=== PATIENT | female | born 1985 | race American Indian/Alaskan Native ===

== ENCOUNTER 2018-11-20 23:07 | Emergency (ER) | payer SELFPAY ==
[2018-11-20] MEDS ORDERED: NACL 0.9% 1000 ML 1,000 ML IV ONE (23:24)
[2018-11-21 01:17] LABS: Basophils % (Auto) 0.4 % (0.0-1.8); Eosinophils # (Auto) 0.1 K/mm3 (0.0-0.4); Eosinophils % (Auto) 0.9 % (0.0-4.3); Hematocrit 31.7 % (30.3-42.9); Hemoglobin 9.5 gm/dl (10.1-14.3); Lymphocytes # (Auto) 1.9 K/mm3 (1.2-5.4); Lymphocytes % (Auto) 32.9 % (13.4-35.0); Mean Corpuscular HGB Conc 30 % (30-34); Mean Corpuscular Volume 67 fl (79-97); Monocytes # (Auto) 0.4 K/mm3 (0.0-0.8); Monocytes % (Auto) 7.5 % (0.0-7.3); Platelet Count 240 K/mm3 (140-440); Red Blood Count 4.73 M/mm3 (3.65-5.03); Red Cell Distribution Width 18.3 % (13.2-15.2)
[2018-11-21 01:41] LABS: Alanine Aminotransferase 11 units/L (7-56); Albumin 4.2 g/dL (3.9-5); BUN/Creatinine Ratio 18; Blood Urea Nitrogen 14 mg/dL (7-17); Calcium 9.2 mg/dL (8.4-10.2); Hemolysis Index 0
[2018-11-21 02:46] LABS: Bacteria,Urine 1+ /HPF (Negative); Bilirubin,Urine NEG (Negative); Blood,Urine SM (Negative); Color,Urine Yellow (Yellow); Mucus,Urine FEW /HPF; Protein,Urine <15 mg/dL mg/dL (Negative); Urobilinogen,Urine < 2.0 mg/dL (<2.0)
[2018-11-21] MEDS ORDERED: XYLOCAINE 1% MPF 5 mL INFILTRATI ONE (02:52)
[2018-11-21] MEDS ORDERED: ROCEPHIN IM ONE (02:53)
--- NOTE | 2018-11-21 03:22 | Emergency Department Report ---
ED Female HPI - General Chief complaint: Abdominal Pain Stated complaint: ABD PAIN Time Seen by Provider: 11/21/18 02:02 Source: patient Mode of arrival: Ambulatory Limitations: No Limitations - History of Present Illness Initial comments: 33-year-old -[place] female presents to the emergency room for concerns for STD she has vaginal discharge that has a foul odor. Patient reports mild suprapubic pain. Patient reports that she is sexually active with 2 men in the last 6 months but reports that she has been using protection. Not sure if the partners condom came off. Patient denies any fever or chills no nausea no vomiting. MD Complaint: vaginal discharge, pelvic pain -: week(s) (1) Location: suprapubic Radiation: non-radiating Severity scale (0 -10): 6 Quality: cramping Consistency: intermittent Improves with: none Worsens with: none Are you Now?: No Associated Symptoms: vaginal discharge (with odor). denies: vaginal bleeding, nausea/vomiting, fever/chills - Related Data Sexually active: Yes (2 partners last 6 months man) Previous Rx's Medication Instructions Recorded Last Taken Type Acetaminophen/Codeine [Tylenol 1 tab PO Q6H PRN #12 tab 11/21/18 Unknown Rx /Codeine # 3 tab] Doxycycline [Vibramycin CAP] 100 mg PO Q12HR #20 capsule 11/21/18 Unknown Rx metroNIDAZOLE [Flagyl] 500 mg PO Q8HR #30 tablet 11/21/18 Unknown Rx Allergies Allergy/AdvReac Type Severity Reaction Status Date / Time No Known Allergies Allergy Unverified 11/20/18 23:15 ED Review of Systems ROS: Stated complaint: ABD PAIN Other details as noted in HPI Comment: All other systems reviewed and negative Gastrointestinal: abdominal pain Genitourinary: discharge ED Past Medical Hx - Past Medical History Previous Medical History?: No - Surgical History Past Surgical History?: Yes Additional Surgical History: back sx, scoliosis 2000 - Social History Smoking Status: Never Smoker Substance Use Type: None - Medications Home Medications: Home Medications Medication Instructions Recorded Confirmed Last Taken Type Acetaminophen/Codeine [Tylenol 1 tab PO Q6H PRN #12 tab 11/21/18 Unknown Rx /Codeine # 3 tab] Doxycycline [Vibramycin CAP] 100 mg PO Q12HR #20 capsule 11/21/18 Unknown Rx metroNIDAZOLE [Flagyl] 500 mg PO Q8HR #30 tablet 11/21/18 Unknown Rx ED Physical Exam - General Limitations: No Limitations General appearance: alert, in no apparent distress - Head Head exam: Present: atraumatic, normocephalic - Eye Eye exam: Present: EOMI - ENT ENT exam: Present: mucous membranes moist - Respiratory Respiratory exam: Present: normal lung sounds bilaterally. Absent: respiratory distress - Cardiovascular Cardiovascular Exam: Present: regular rate, normal rhythm. Absent: systolic murmur, diastolic murmur, rubs, gallop - GI/Abdominal GI/Abdominal exam: Present: soft. Absent: distended, tenderness - External exam: Present: normal external exam Speculum exam: Present: vaginal discharge, foreign body (retained tampon) Bi-manual exam: Present: cervical motion tendernes, uterine tenderness - Extremities Exam Extremities exam: Present: normal inspection, full ROM - Back Exam Back exam: Present: normal inspection - Neurological Exam Neurological exam: Present: alert, oriented X3, normal gait - Psychiatric Psychiatric exam: Present: normal affect, normal mood - Skin Skin exam: Present: warm, dry, intact, normal color. Absent: rash ED Medical Decision Making - Lab Data Result diagrams: 11/21/18 00:45 11/21/18 00:45 Laboratory Tests 11/20/18 11/21/18 11/21/18 Unknown 00:45 00:45 WBC 5.7 RBC 4.73 Hgb 9.5 L Hct 31.7 MCV 67 L MCH 20 L MCHC 30 RDW 18.3 H Plt Count 240 Lymph % (Auto) 32.9 [place] % (Auto) 7.5 H Eos % (Auto) 0.9 Baso % (Auto) 0.4 Lymph # 1.9 [place] # 0.4 Eos # 0.1 Baso # 0.0 Seg Neutrophils % 58.3 Seg Neutrophils # 3.3 Sodium 139 Potassium 3.7 Chloride 102.8 Carbon Dioxide 24 Anion Gap 16 BUN 14 Creatinine 0.8 Estimated GFR > 60 BUN/Creatinine Ratio 18 Glucose 92 Calcium 9.2 Total Bilirubin < 0.20 AST 13 ALT 11 Alkaline Phosphatase 67 Total Protein 7.4 Albumin 4.2 Albumin/Globulin Ratio 1.3 Urine Color Yellow Urine Turbidity Slightly-cloudy Urine pH 6.0 Ur Specific Damon 1.025 Urine Protein <15 mg/dl Urine Glucose (UA) Neg Urine Ketones Neg Urine Blood Sm Urine Nitrite Neg Urine Bilirubin Neg Urine Urobilinogen < 2.0 Ur Leukocyte Esterase Lg Urine WBC (Auto) 22.0 H Urine RBC (Auto) 16.0 U Epithel Cells (Auto) 3.0 Urine Bacteria (Auto) 1+ Urine Mucus Few Urine Yeast (Budding) Few - Medical Decision Making Patient has been evaluated by this provider in fast track. Patient was given Rocephin 500 mg IM Patient reports that the tampon has been in the vaginal vault for 3 weeks. Patient reports that she had intercourse last week. Wet prep and gonorrhea chlamydia test sent to lab. Wet prep came back greater than 20% clue cells and moderate PMN cells. Discharge patient home on Flagyl 500 mg every 8 hours dispense 30 and doxycycline 100 mg by mouth twice a day 20 Instructed patient to refrain from intercourse for the next 2 weeks. Patient is to follow up with her primary care provider. Critical care attestation.: If time is entered above; I have spent that time in minutes in the direct care of this critically ill patient, excluding procedure time. ED Disposition Clinical Impression: Cervicitis Retained tampon Qualifiers: Encounter type: initial encounter Qualified Code(s): T19.2XXA - Foreign body in vulva and vagina, initial encounter Disposition: DC-01 TO HOME OR SELFCARE Is pt being admited?: No Does the pt Need Aspirin: No Condition: Stable Instructions: Abdominal Pain (ED), Cervicitis (ED) Additional Instructions: Please complete antibiotics as prescribed. Please take pain medication as needed. Follow up with her primary care provider if his symptoms persist or gets worse. I recommend refraining from intercourse for 2 weeks. Do not douche. Prescriptions: Acetaminophen/Codeine [Tylenol /Codeine # 3 tab] 1 tab PO Q6H PRN #12 tab PRN Reason: Pain , Severe (7-10) Doxycycline [Vibramycin CAP] 100 mg PO Q12HR #20 capsule metroNIDAZOLE [Flagyl] 500 mg PO Q8HR #30 tablet Referrals: [facility] MD KENA [Primary Care Provider] - 3-5 Days Forms: STI Treatment and Prevention
[2018-11-21 03:33] VITALS: BP 116/65
== END 2018-11-21 03:59 | disposition home or self-care (01) ==
LOC: ED 23:07
DX: T19.2XXA Foreign body in vulva and vagina, initial encounter (principal); N72 Inflammatory disease of cervix uteri; X58.XXXA Exposure to other specified factors, initial encounter; Y93.89 Activity, other specified; Y92.89 Other specified places as the place of occurrence of the external cause; Y99.8 Other external cause status
CPT/HCPCS: 36415; 80053; 81001; 85025; 87210; 87591; 96372; 99284; J0696